=== PATIENT | female | born 1970 | race African-American/Black ===

== ENCOUNTER 2017-05-28 13:47 | Emergency (ER) | payer OTHER ==
[2017-05-28 14:10] VITALS: BP 137/82; PULSE 67; TEMP 97.7; BMI 30.9
--- NOTE | 2017-05-28 14:46 | PDOC ---
History of Present Illness <Carmenza Saenz - Last Filed: 05/28/17 14:46> - General History Source: Patient Exam Limitations: No Limitations - History of Present Illness Initial Comments: 05/28/17 14:52 The patient is a 46 year old female, with a significant past medical history of systolic murmur, who presents to the emergency department with, two hours of pulling sensation in her left arm. The patient describes her symptom as a pulling sensation which radiates as a tingling to her shoulder. Secondary to her symptoms, she reports numbness to the left shoulder. 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 She denies any pain. She denies recent fevers, chills, headache or dizziness. She denies recent nausea, vomit, diarrhea or constipation. She denies recent dysuria, frequency, urgency or hematuria. She denies recent chest pain or shortness of breath. Allergies: NKA Past surgical history: Hysterectomy (2000). Social history: Nonsmoker. Denies EtOH use and recreational drug use. <Yu Meade - Last Filed: 05/28/17 14:53> - General Chief Complaint: Blood Pressure Problem Stated Complaint: ELEVATED BLOOD PRESSURE,PAIN TO LEFT ARM Time Seen by Provider: 05/28/17 13:55 Past History - Past Medical History Asthma: Yes Cardiac Disorders: Yes (MURMUR) COPD: No - Surgical History Abdominal Surgery: (ectopic x 2) - Suicide/Smoking/Psychosocial Hx Smoking History: Never smoked Hx Alcohol Use: Yes (occasional) Drug/Substance Use Hx: No Substance Use Type: None <Carmenza Saenz - Last Filed: 05/28/17 14:46> <Yu eMade - Last Filed: 05/28/17 14:53> - Past Medical History Allergies/Adverse Reactions: Allergies Allergy/AdvReac Type Severity Reaction Status Date / Time No Known Allergies Allergy Verified 05/28/17 14:06 Home Medications: Ambulatory Orders NK [No Known Home Medication] 05/28/17 Review of Systems - Review of Systems Able to Perform ROS?: Yes Comments:: 05/28/17 14:52 GENERAL/CONSTITUTIONAL: No fever or chills. No weakness. HEAD, EYES, EARS, NOSE AND THROAT: No change in vision. No ear pain or discharge. No sore throat. CARDIOVASCULAR: No chest pain or shortness of breath. RESPIRATORY: No cough, wheezing, or hemoptysis. GASTROINTESTINAL: No nausea, vomiting, diarrhea or constipation. GENITOURINARY: No dysuria, frequency, or change in urination. MUSCULOSKELETAL: +Left arm to shoulder pulling and tingling. No joint or muscle swelling or pain. No neck or back pain. SKIN: No rash NEUROLOGIC: No headache, vertigo, loss of consciousness, or change in strength/ sensation. ENDOCRINE: No increased thirst. No abnormal weight change. HEMATOLOGIC/LYMPHATIC: No anemia, easy bleeding, or history of blood clots. ALLERGIC/IMMUNOLOGIC: No hives or skin allergy. All Other Systems: Reviewed and Negative <Yu Meade - Last Filed: 05/28/17 14:53> *Physical Exam - Vital Signs Last Vital Signs Temp Pulse Resp BP Pulse Ox 97.7 F 67 18 137/82 100 05/28/17 13:50 05/28/17 13:50 05/28/17 13:50 05/28/17 13:50 05/28/17 13:50 <Carmenza Saenz - Last Filed: 05/28/17 14:46> - Vital Signs Last Vital Signs Temp Pulse Resp BP Pulse Ox 97.7 F 67 18 137/82 100 05/28/17 13:50 05/28/17 13:50 05/28/17 13:50 05/28/17 13:50 05/28/17 13:50 - Physical Exam Comments: 05/28/17 14:53 GENERAL: Awake, alert, and fully oriented, in no acute distress HEAD: No signs of trauma EYES: PERRLA, EOMI, sclera anicteric, conjunctiva clear ENT: Auricles normal inspection, hearing grossly normal, nares patent, oropharynx clear without exudates. Moist mucosa NECK: Normal ROM, supple, no lymphadenopathy, JVD, or masses LUNGS: Breath sounds equal, clear to auscultation bilaterally. No wheezes, and no crackles HEART: +Systolic murmur. Regular rhythm, normal S1 and S2, rubs or gallops ABDOMEN: Soft, nontender, normoactive bowel sounds. No guarding, no rebound. No masses EXTREMITIES: Normal range of motion, no edema. No clubbing or cyanosis. No cords, erythema, or tenderness NEUROLOGICAL: Cranial nerves II through XII grossly intact. Normal speech, normal gait SKIN: Warm, Dry, normal turgor, no rashes or lesions noted. <Yu Meade - Last Filed: 05/28/17 14:53> Medical Decision Making - Medical Decision Making 05/28/17 14:46 pt presents to the ED complaining of subjective feeling of numbness that is centered on the left forearm, without other complaints. Hypertensive at her job , not hypertensive in the ED. Will discharge home with referral back to her PMD. <Carmenza Saenz - Last Filed: 05/28/17 14:46> *DC/Admit/Observation/Transfer - Discharge Dispostion Admit: No <Carmenza Saenz - Last Filed: 05/28/17 14:46> - Attestations Scribe Attestion: 05/28/17 14:53 Documentation prepared by Yu Meade, acting as medical sales for Carmenza Saenz MD. <Yu Meade - Last Filed: 05/28/17 14:53> Diagnosis at time of Disposition: Skin sensation disturbance - Discharge Dispostion Disposition: HOME Condition at time of disposition: Good - Patient Instructions Printed Discharge Instructions: DI for High Blood Pressure Additional Instructions: return to the ED for weakness on one side of the body or face, slurred speech, severe headache, confusion, other new or worsening symptoms. Follow up with your doctor within one week to recheck your blood pressure. - Post Discharge Activity Forms/Work/School Notes: Back to Work
--- NOTE | 2017-06-02 18:17 | EKG ---
Test Reason : Blood Pressure : / mmHG Vent. Rate : 062 BPM Atrial Rate : 062 BPM P-R Int : 156 ms QRS Dur : 086 ms QT Int : 420 ms P-R-T Axes : 062 -19 030 degrees QTc Int : 426 ms NORMAL SINUS RHYTHM WITH SINUS ARRHYTHMIA LEFT ATRIAL ENLARGEMENT MINIMAL VOLTAGE CRITERIA FOR LVH, MAY BE NORMAL VARIANT BORDERLINE ECG NO PREVIOUS ECGS AVAILABLE Confirmed by MD ADITI, JUAN JOSE ([id number]) on 06/02/2017 6:16:28 PM Referred By: JIM Confirmed By:JUAN JOSE PENNINGTON MD
== END 2017-05-28 14:57 | disposition home or self-care (01) ==
LOC: FER 13:47
DX: R20.8 Other disturbances of skin sensation (principal); R01.1 Cardiac murmur, unspecified
CPT/HCPCS: 93005; 99282-25